=== PATIENT | female | born 1960 | race Caucasian/White ===

== ENCOUNTER 2022-02-03 07:29 | Inpatient (IN) | payer MEDICAID ==
[~2022-02-03] VITALS: Ht 162.6 cm; Wt 47.2 kg
--- NOTE | 2022-02-03 07:29 | NUR ---
BIB [id number] FROM HOME C/O GENERALIZED WEAKNESS, POOR APPETITE, UNALBLE TO WALK AND ABOMINAL PAIN 7/10 ON P/S X2 DAYS. PT IS A&OX4. ATTACHED TO MONITOR, VITALS ARE WITHIN NORMAL LIMITS. AWAITING MD ORDERS.
[2022-02-03] MEDS ORDERED: IV NS 0.9% 1,000 ML BAG IV ONE (08:00)
--- NOTE | 2022-02-03 08:10 | NUR ---
TECH AT BEDSIDE FOR EKG
--- NOTE | 2022-02-03 08:11 | NUR ---
RAC #20 BLOOD DRAWN AND SENT TO LAB
[2022-02-03 08:15] LABS: BASOPHILS % (AUTO) 1.1 % (0.0-2.0); HEMATOCRIT 36 % (33-45); LYMPHOCYTES # (AUTO) 2.1 K/uL (0.8-4.8); LYMPHOCYTES % (AUTO) 47.2 % (20.0-44.0); MEAN CORPUSCULAR HGB CONC 33 g/dl (31.0-36.0); MEAN CORPUSCULAR VOLUME 90 fL (82-100); MONOCYTES # (AUTO) 0.3 K/uL (0.1-1.30); MONOCYTES % (AUTO) 6.3 % (2.0-12.0); NEUTROPHILS % (AUTO) 44.4 % (43.0-81.0); PLATELET COUNT (AUTO) 304 K/uL (150-450); RED BLOOD CELL COUNT(AUTO) 4.02 MIL/uL (4.0-5.2); WHITE BLOOD COUNT (AUTO) 4.5 K/uL (4.3-11.0)
--- NOTE | 2022-02-03 08:20 | NUR ---
MOVE SHEET SUBMITTED.
--- NOTE | 2022-02-03 08:22 | NUR ---
COVID SWAB TEST DONE SENT TO LAB.
[2022-02-03 08:30] LABS: CALCIUM, SERUM 8.8 mg/dL (8.5-10.1); CARBON DIOXIDE 26 mmol/L (21-32); CHLORIDE 99 mmol/L (98-107); CREATININE 0.8 mg/dL (0.6-1.3); GLUCOSE 175 mg/dL (74-106); POTASSIUM 3.7 mmol/L (3.5-5.1); SODIUM SERUM 127 mmol/L (136-145); UREA NITROGEN, BLOOD 11 mg/dL (7-18)
[2022-02-03 08:35] LABS: ALANINE AMINOTRANSFERASE 61 U/L (12-78); ALBUMIN 2.2 g/dL (3.4-5.0); ALKALINE PHOSPHATASE 133 U/L (46-116); ASPARTATE AMINOTRANSFERASE 31 U/L (15-37); BILIRUBIN,DIRECT 0.1 mg/dL (0.0-0.2); BILIRUBIN,TOTAL 0.5 mg/dL (0.2-1.0); TOTAL PROTEIN, SERUM 7.3 g/dL (6.4-8.2)
[2022-02-03 08:47] LABS: THYROID STIMULATING HORMONE 2.294 uIU/mL (0.358-3.74)
[2022-02-03] MEDS ORDERED: NYST5ORA PO (09:46)
[2022-02-03] MEDS ORDERED: POTA10TA11 PO (09:46)
[2022-02-03] MEDS ORDERED: FLUC150T PO (09:46)
[2022-02-03] MEDS ORDERED: SULF1TAB48 PO (09:46)
[2022-02-03] MEDS ORDERED: MIRT-90 PO (09:46)
[2022-02-03] MEDS ORDERED: PANT40TA49 PO (09:46)
[2022-02-03] MEDS ORDERED: MAGN400T26 PO (09:46)
[2022-02-03] MEDS ORDERED: BICT1TAB PO (09:46)
[2022-02-03] MEDS ORDERED: TEMAZEPAM 15 MG CAPSULE PO PRN (11:00)
[2022-02-03] MEDS ORDERED: ACETAMINOPHEN 325 MG TABLET PO PRN (11:00)
[2022-02-03] MEDS ORDERED: MAGNESIUM HYDROXIDE 30 ML UDC PO PRN (11:00)
[2022-02-03] MEDS ORDERED: Z GUARD REMEDY 4 OZ OINT TP PRN (11:00)
[2022-02-03] MEDS ORDERED: ONDANSETRON HCL/PF 4 MG/2 ML VIAL IVP PRN (11:00)
[2022-02-03] MEDS ORDERED: MAG HYDROX/AL HYDROX/SIMETH 30 ML UDC PO PRN (11:00)
--- NOTE | 2022-02-03 11:14 | NUR ---
URINE SAMPLE COLLECTED AND SENT TO LAB
[2022-02-03] MEDS: HYDROCODONE/APAP 5/325MG TABLET PO PRN ×2 (11:26→21:02)
[2022-02-03] MEDS ORDERED: HYDROCODONE/APAP 5/325MG TABLET ONE (11:26)
[2022-02-03] MEDS: IV D5/0.45 NACL 1,000 ML IV PRN ×2 (11:33→16:29)
[2022-02-03 11:57] LABS: BILIRUBIN,URINE NEGATIVE (NEGATIVE); COLOR,URINE YELLOW (YELLOW); LEUKOCYTE ESTERASE ,URINE NEGATIVE (NEGATIVE); NITRITE, URINE NEGATIVE (NEGATIVE); PH,URINE 7.5 (5.0-8.0); PROTEIN,URINE NEGATIVE (NEGATIVE); UGLUCOSE NEGATIVE (NEGATIVE); UROBILINOGEN,URINE 0.2 EU/dL (0.2)
[2022-02-03 12:14] LABS: BACTERIA,URINE Few /HPF (None Seen); RBC,URINE NONE SEEN /HPF (0-2); SQUAMOUS EPITHELIAL CELL,UR Moderate /HPF (None Seen); WBC,URINE NONE SEEN /HPF (0-3)
--- NOTE | 2022-02-03 15:11 | NUR ---
REPORT GIVEN TO RICHARD FOR MARCIA
--- NOTE | 2022-02-03 15:37 | NUR ---
PT TRANSFERRED TO ROOM 307 VIA PAULA MARX PROTOCOL. WARM HANDOFF GIVEN TO ANGELA RAMOS.
[2022-02-03 16:00] VITALS: BP 136/89
--- NOTE | 2022-02-03 19:01 | NUR ---
MS RN CLOSING NOTES: PT IN BED AWAKE, ALERT AND ORIENTED X 4 AND CZECH SPEAKING. NO SOB OR CARDIAC DISTRESS NOTED. DENIES ANY PAIN AT THIS TIME. IV ACCESS RAC G20 PATENT AND INTACT INFUSING D5 1/2 NS @75ML/HR. SAFETY MEASURES MAINTAINED: BED LOCKED AND IN LOWEST POSITION, SIDE RAILS UP X 2. CALL LIGHT IN EASY REACH FOR HELP. ENDORSED TO NOC SHIFT FOR MARCIA.
--- NOTE | 2022-02-03 19:30 | NUR ---
MS RN OPENING NOTE RECEIVED PT AWAKE IN BED. A/O X4 WITH EPISODES OF FORGETFULNESS, SAMI SPEAKING ONLY. PT STABLE ON ROOM AIR, SATURATING 97%. NO SOB OR S/S OF RESPIRATORY DISTRESS. BREATHING EVEN AND UNLABORED. IV ACCESS RAC 20G, INTACT AND PATENT, RUNNING D5 1/2NS @ 75 ML/HR. SAFETY PRECAUTIONS IN PLACE. BED IN LOWEST LOCKED POSITION, HOB ELEVATED, SIDE RAILS UP X2, AND CALL LIGHT AND TABLE WITHIN REACH. ALL NEEDS MET AT THIS TIME.
[2022-02-03 20:00] VITALS: BP 138/92
[2022-02-04 06:03] LABS: BASOPHILS % (AUTO) 0.9 % (0.0-2.0); EOSINOPHILS % (AUTO) 1.1 % (0.0-6.0); HEMATOCRIT 34 % (33-45); HEMOGLOBIN 11.3 g/dL (11.5-14.8); LYMPHOCYTES # (AUTO) 1.6 K/uL (0.8-4.8); LYMPHOCYTES % (AUTO) 34.9 % (20.0-44.0); MEAN CORPUSCULAR HGB CONC 34 g/dl (31.0-36.0); MEAN CORPUSCULAR VOLUME 90 fL (82-100); MONOCYTES # (AUTO) 0.3 K/uL (0.1-1.30); MONOCYTES % (AUTO) 5.9 % (2.0-12.0); NEUTROPHILS # (AUTO) 2.6 K/uL (1.8-8.9); NEUTROPHILS % (AUTO) 57.2 % (43.0-81.0); PLATELET COUNT (AUTO) 248 K/uL (150-450); RED BLOOD CELL COUNT(AUTO) 3.72 MIL/uL (4.0-5.2); WHITE BLOOD COUNT (AUTO) 4.5 K/uL (4.3-11.0)
[2022-02-04 06:22] LABS: CALCIUM, SERUM 8.5 mg/dL (8.5-10.1); CREATININE 0.5 mg/dL (0.6-1.3); PHOSPHORUS 2.9 mg/dL (2.5-4.9); POTASSIUM 3.8 mmol/L (3.5-5.1)
--- NOTE | 2022-02-04 06:49 | NUR ---
MS RN CLOSING NOTE PT AWAKE IN BED. A/O X2 WITH EPISODES OF FORGETFULNESS, BULGARIAN SPEAKING ONLY. PT STABLE ON ROOM AIR, SATURATING 98%. NO SOB OR S/S OF RESPIRATORY DISTRESS. BREATHING EVEN AND UNLABORED. IV ACCESS RFA 22G, INTACT AND PATENT, RUNNING D5 1/2NS @ 75 ML/HR. ALL DUE MEDS GIVEN ORDERED. SAFETY PRECAUTIONS IN PLACE AT ALL TIMES. BED IN LOWEST LOCKED POSITION, HOB ELEVATED, SIDE RAILS UP X2, AND CALL LIGHT AND TABLE WITHIN REACH. ALL NEEDS MET AT THIS TIME AND WILL ENDORSE TO ONCOMING NURSE FOR MARCIA.
--- NOTE | 2022-02-04 07:35 | NUR ---
MS RN OPENING NOTE Patient in bed, awake. A/O x 1-2, confused. Citizen Of [place] speaking only. On room air, breathing evenly and unlabored. No SOB or s/s of in distress noted. Iv access on RFA #22 infusing D5 1/2 NS at 75 ml/hr. Safety precautions in place: bed in low, locked position; siderails up x 2; call light within reach. Will continue to monitor.
[2022-02-04 07:41] LABS: THYROID STIMULATING HORMONE 3.017 uIU/mL (0.358-3.74)
[2022-02-04 08:00] VITALS: BP 169/100
[2022-02-04] MEDS: PANTOPRAZOLE 40 MG TABLET.DR PO SCH (08:17)
[2022-02-04 12:00] VITALS: BP 147/96
[2022-02-04] MEDS: ALPRAZOLAM 0.25 MG TABLET PO PRN (12:15)
[2022-02-04] MEDS: IV D5/0.45 NACL 1,000 ML IV PRN (12:20)
[2022-02-04] MEDS: MAGNESIUM OXIDE 400 MG TABLET PO SCH (14:15)
[2022-02-04 16:00] VITALS: BP 128/87
[2022-02-04] MEDS: HYDROCODONE/APAP 5/325MG TABLET PO PRN (18:06)
[2022-02-04] MEDS: NYSTATIN (PYXIS) 500,000 UNIT/5 ML ORAL.SUSP PO SCH ×2 (18:13→21:12)
[2022-02-04] MEDS: ENSURE ENLIVE 237 ML LIQUID (VANILLA) PO SCH (18:22)
--- NOTE | 2022-02-04 18:58 | NUR ---
MS RN CLOSING NOTE Patient in bed, awake. A/O x 1-2, confused. Uruguayan speaking only. Stable on room air, breathing evenly and unlabored. No SOB or s/s of in distress noted. Iv access on RFA #22 infusing D5 1/2 NS at 75 ml/hr. All prescribed medications are administered. Safety precautions maintained: bed in low, locked position; siderails up x 2; call light within reach. Will endorse to next shift any MARCIA.
--- NOTE | 2022-02-04 19:00 | NUR ---
RN NOTES: -RECEIVED AWAKE ON BED , LYING COMFORTABLY ON SEMI FOWLERS POSITION, A/OX1-2 WITH PERIODS OF CONFUSION AND FORGETFULNESS,TURKS AND [place] SPEAKING ONLY, NEICE PRESENT AT BED SIDE,NO PAIN OR DISCOMFORT AT THIS TIME, NON LABORED BREATHING ON ROOM AIR, , ORIENTED TO UNIT AND STAFF, COOPERATIVE TO CARE,IV CANNULA ON THE RFA G#22 WITH D5%1/2 NS AT 75 ML/HR ONGOING VIA INFUSION PUMP, FOR LABS IN THE MORNING, PT AND PSYCH EVAL DONE TODAY, CONTINUE HYDRATION, SHE VERBALIZED, SHE IS NOT IN PAIN IN TURKS AND [place] , KEPT ON CLOSE WATCH. -SAFETY PRECAUTION OBSERVED, -KEPT CALL LIGHT WITHIN EASY REACH. -BED LOW AND LOCKED, SIDE RAILS UP X 2.
[2022-02-04 20:00] VITALS: BP 111/65
[2022-02-04] MEDS: MIRTAZAPINE 15 MG TABLET PO SCH (21:31)
--- NOTE | 2022-02-04 21:32 | NUR ---
RN NOTES: ORAL MEDS GIVEN, COOPERATIVE.
[2022-02-05] MEDS: IV D5/0.45 NACL 1,000 ML IV PRN ×2 (01:52→18:29)
--- NOTE | 2022-02-05 01:52 | NUR ---
RN NOTES: IVF CONSUMED, CHANGE INTO NEW BAG D5%1/2 NS AT 75 ML/HR.
--- NOTE | 2022-02-05 06:11 | NUR ---
RN NOTES: MORNING CARE DONE, CLEAN AND CHANGE, REPOSITIONED.
[2022-02-05 06:13] LABS: CALCIUM, SERUM 8.3 mg/dL (8.5-10.1); CREATININE 0.5 mg/dL (0.6-1.3); MAGNESIUM 1.9 mg/dL (1.8-2.4); PHOSPHORUS 2.9 mg/dL (2.5-4.9); POTASSIUM 3.3 mmol/L (3.5-5.1)
--- NOTE | 2022-02-05 07:00 | NUR ---
RN NOTES: ABLE TO SLEEP AND REST, NO PAIN OR DISCOMFORT IN THE NIGHT, IVF CONTINUE, BLOOD TEST DONE IN THE MORNING,FOR PT, GIVEN FLUIDS TOLERATED, ENDORSED FOR CONTINUITY OF CARE.
[2022-02-05 07:11] LABS: BASOPHILS # (AUTO) 0.1 K/uL (0.0-0.2); BASOPHILS % (AUTO) 1.6 % (0.0-2.0); EOSINOPHILS % (AUTO) 2.4 % (0.0-6.0); HEMATOCRIT 32 % (33-45); HEMOGLOBIN 10.9 g/dL (11.5-14.8); LYMPHOCYTES # (AUTO) 1.6 K/uL (0.8-4.8); LYMPHOCYTES % (AUTO) 46.8 % (20.0-44.0); MEAN CORPUSCULAR HGB CONC 34 g/dl (31.0-36.0); MEAN CORPUSCULAR VOLUME 91 fL (82-100); MONOCYTES # (AUTO) 0.3 K/uL (0.1-1.30); MONOCYTES % (AUTO) 9.1 % (2.0-12.0); NEUTROPHILS # (AUTO) 1.4 K/uL (1.8-8.9); NEUTROPHILS % (AUTO) 40.1 % (43.0-81.0); PLATELET COUNT (AUTO) 229 K/uL (150-450); RED BLOOD CELL COUNT(AUTO) 3.52 MIL/uL (4.0-5.2); WHITE BLOOD COUNT (AUTO) 3.5 K/uL (4.3-11.0)
[2022-02-05] MEDS ORDERED: PANTOPRAZOLE 40 MG TABLET.DR PO SCH (07:30)
--- NOTE | 2022-02-05 07:35 | NUR ---
MS RN OPENING NOTE Patient in bed, sleeping. Hebrew speaking only. On room air, breathing evenly and unlabored. No SOB or s/s of in distress noted. Iv access on RFA #22 infusing D5 1/2 NS at 75 ml/hr. Safety precautions in place: bed in low, locked position; siderails up x 2; call light within reach. Will continue to monitor. Addendum: 02/05/22 at 0752 by JOSÉ PADRON RN A/O x2 per weight shifter nurse.
[2022-02-05 08:00] VITALS: BP 98/58
[2022-02-05] MEDS: MAGNESIUM OXIDE 400 MG TABLET PO SCH (09:01)
[2022-02-05] MEDS: PANTOPRAZOLE 40 MG TABLET.DR PO SCH (09:02)
[2022-02-05] MEDS: SULFAMETH/TRIMETH 800/160 MG 1 UDTAB TABLET PO SCH (09:02)
[2022-02-05] MEDS: POTASSIUM CHLORIDE 10 MEQ TABLET.SA PO SCH (09:02)
[2022-02-05] MEDS: FLUCONAZOLE (100 MG) 100 MG TABLET PO SCH (09:03)
[2022-02-05] MEDS: NYSTATIN (PYXIS) 500,000 UNIT/5 ML ORAL.SUSP PO SCH ×4 (09:04→21:22)
[2022-02-05] MEDS: ENSURE ENLIVE 237 ML LIQUID (VANILLA) PO SCH ×2 (09:06→17:41)
[2022-02-05] MEDS: HYDROCODONE/APAP 5/325MG TABLET PO PRN ×2 (11:39→21:22)
[2022-02-05] MEDS ORDERED: POTASSIUM CHLORIDE 20 MEQ TAB.PRT.SR PO SCH (12:00)
[2022-02-05 16:00] VITALS: BP 139/91
--- NOTE | 2022-02-05 18:56 | NUR ---
MS RN CLOSING NOTE Patient in bed, resting. Malawian speaking only.Stable on room air, breathing evenly and unlabored. No SOB or s/s of in distress noted. IV access on RFA #22 infusing D5 1/2 NS at 75 ml/hr. All needs attended to. Due meds given. Safety precautions in place: bed in low, locked position; siderails up x 2; call light within reach. Will endorse to sandal parts assembler nurse for MARCIA.
--- NOTE | 2022-02-05 19:25 | NUR ---
RN OPENING NOTE PATIENT IN BED, AWAKE. PATIENT IS A/O X 2, ABLE TO MAKE NEEDS KNOWN. PATIENT IS ON RA, TOLERATING WELL. NO SOB NOTED, BREATHING EVEN AND UNLABORED. PATIENT HAS A RFA 22G WITH D5 1/2 NS ONGOING AT 75 ML/HR, INFUSING WELL. PATIENT DOES NOT REPORT ANY PAIN AT THIS TIME. SAFETY MEASURES IN PLACE: BED LOCKED AND IN LOWEST POSITION, CALL LIGHT WITHIN REACH, SIDE RAILS UP. WILL MONITOR PATIENT CLOSELY
[2022-02-05] MEDS: MIRTAZAPINE 15 MG TABLET PO SCH (21:22)
--- NOTE | 2022-02-05 21:22 | NUR ---
RN NOTE PATIENT GIVEN NORCO FOR PAIN ON HER BACK. WILL REASSESS MED EFFECTIVENESS AT A LATER TIME
[2022-02-06 06:16] LABS: HEMATOCRIT 31 % (33-45); HEMOGLOBIN 10.5 g/dL (11.5-14.8); MEAN CORPUSCULAR HGB CONC 34 g/dl (31.0-36.0); MEAN CORPUSCULAR VOLUME 90 fL (82-100); RED BLOOD CELL COUNT(AUTO) 3.44 MIL/uL (4.0-5.2); WHITE BLOOD COUNT (AUTO) 4.4 K/uL (4.3-11.0)
[2022-02-06 06:17] LABS: BASOPHILS # (AUTO) 0.1 K/uL (0.0-0.2); LYMPHOCYTES # (AUTO) 1.7 K/uL (0.8-4.8); LYMPHOCYTES % (AUTO) 39.7 % (20.0-44.0); MONOCYTES # (AUTO) 0.3 K/uL (0.1-1.30); MONOCYTES % (AUTO) 7.6 % (2.0-12.0); NEUTROPHILS # (AUTO) 2.1 K/uL (1.8-8.9); NEUTROPHILS % (AUTO) 48.7 % (43.0-81.0); PLATELET COUNT (AUTO) 227 K/uL (150-450)
[2022-02-06] MEDS: IV D5/0.45 NACL 1,000 ML IV PRN ×2 (06:22→18:29)
[2022-02-06] MEDS: ALPRAZOLAM 0.25 MG TABLET PO PRN (06:24)
[2022-02-06 06:54] LABS: CALCIUM, SERUM 8.4 mg/dL (8.5-10.1); CREATININE 0.5 mg/dL (0.6-1.3); MAGNESIUM 1.8 mg/dL (1.8-2.4); PHOSPHORUS 2.6 mg/dL (2.5-4.9); POTASSIUM 3.7 mmol/L (3.5-5.1)
--- NOTE | 2022-02-06 07:11 | NUR ---
RN CLOSING NOTE PATIENT GIVEN XANAX FOR ANXIOUSNESS. PAIN MANAGED WITH NORCO TABLET. ALL NEEDS MET AND ATTENDED. ALL ORDERS CARRIED OUT. WILL ENDORSE PATIENT TO DAY SHIFT NURSE NURSE.
--- NOTE | 2022-02-06 07:15 | NUR ---
RN OPENING NOTE PATIENT IN BED, AWAKE. PATIENT IS A/O X 2, ABLE TO MAKE NEEDS KNOWN. PATIENT IS ON RA, TOLERATING WELL. NO SOB NOTED, BREATHING EVEN AND UNLABORED. PATIENT HAS A RFA 22G WITH D5 1/2 NS ONGOING AT 75 ML/HR, INFUSING WELL. VITALS TAKEN AND RECORDED. NO COMPLAINED AT THIS TIME. PATIENT DOES NOT REPORT ANY PAIN AT THIS TIME. SAFETY MEASURES IN PLACE: BED LOCKED AND IN LOWEST POSITION, CALL LIGHT WITHIN REACH, SIDE RAILS UP. WILL MONITOR PATIENT CLOSELY
[2022-02-06 08:00] VITALS: BP 140/80
[2022-02-06] MEDS: NYSTATIN (PYXIS) 500,000 UNIT/5 ML ORAL.SUSP PO SCH ×4 (08:46→20:27)
[2022-02-06] MEDS: SULFAMETH/TRIMETH 800/160 MG 1 UDTAB TABLET PO SCH (08:47)
[2022-02-06] MEDS: MAGNESIUM OXIDE 400 MG TABLET PO SCH (08:47)
[2022-02-06] MEDS: PANTOPRAZOLE 40 MG TABLET.DR PO SCH (08:47)
[2022-02-06] MEDS: POTASSIUM CHLORIDE 10 MEQ TABLET.SA PO SCH (08:48)
[2022-02-06] MEDS: FLUCONAZOLE (100 MG) 100 MG TABLET PO SCH (08:48)
[2022-02-06] MEDS: ENSURE ENLIVE 237 ML LIQUID (VANILLA) PO SCH ×2 (08:50→17:42)
[2022-02-06] MEDS: HYDROCODONE/APAP 5/325MG TABLET PO PRN (15:40)
[2022-02-06 16:00] VITALS: BP 142/69
--- NOTE | 2022-02-06 18:42 | NUR ---
RN CLOSING NOTE PATIENT IN BED, SLEEPING MOST OF THE TIME. PATIENT IS A/O X 2, ABLE TO MAKE NEEDS KNOWN. PATIENT IS ON RA, TOLERATING WELL. NO SOB NOTED, BREATHING EVEN AND UNLABORED ALL THROUGHOUT THE SHIFT. C/O PAIN, PRN PAIN MEDS GIVEN WITH GOOD EFFECT.SAFETY MEASURES IN PLACE: BED LOCKED AND IN LOWEST POSITION, CALL LIGHT WITHIN REACH, SIDE RAILS UP. ENDORSED.
--- NOTE | 2022-02-06 19:00 | NUR ---
OPENING NOTES: ALERT TO PLACE AND NAME SPEAKS ONLY KHMER SR UP AND THE BED ALARM IS ON EXPLAINED THE CALL LIGHT SYSTEM TO HER AND HOW TO CALL FOR ASSIST ROOM AIR NO SO8 COOPERATIVE AND PLEASENT
[2022-02-06 20:00] VITALS: BP 128/92
[2022-02-06] MEDS: MIRTAZAPINE 15 MG TABLET PO SCH (22:01)
[2022-02-07] MEDS: HYDROCODONE/APAP 5/325MG TABLET PO PRN ×2 (01:45→20:19)
--- NOTE | 2022-02-07 05:22 | NUR ---
CLOSING NOTES: ALERT /ORIENTATED X2 ATTENTION SEEKING WILL CALL NURSE TO THE BEDSIDE FREQ. USING THE CALL LIGHT INCONTINENT MAX ASSIST WHEN BEING TURNED AND REPOSITIONED AFGHAN SPEAKING EASILY AGITATED
[2022-02-07] MEDS: IV D5/0.45 NACL 1,000 ML IV PRN (06:23)
[2022-02-07 07:00] LABS: BASOPHILS % (AUTO) 1.1 % (0.0-2.0); EOSINOPHILS % (AUTO) 1.5 % (0.0-6.0); HEMATOCRIT 31 % (33-45); HEMOGLOBIN 10.6 g/dL (11.5-14.8); LYMPHOCYTES # (AUTO) 1.9 K/uL (0.8-4.8); LYMPHOCYTES % (AUTO) 42.3 % (20.0-44.0); MEAN CORPUSCULAR HGB CONC 34 g/dl (31.0-36.0); MEAN CORPUSCULAR VOLUME 89 fL (82-100); MONOCYTES # (AUTO) 0.3 K/uL (0.1-1.30); MONOCYTES % (AUTO) 7.5 % (2.0-12.0); NEUTROPHILS # (AUTO) 2.2 K/uL (1.8-8.9); NEUTROPHILS % (AUTO) 47.6 % (43.0-81.0); PLATELET COUNT (AUTO) 227 K/uL (150-450); RED BLOOD CELL COUNT(AUTO) 3.47 MIL/uL (4.0-5.2); WHITE BLOOD COUNT (AUTO) 4.5 K/uL (4.3-11.0)
--- NOTE | 2022-02-07 07:23 | NUR ---
RN OPENING NOTE PATIENT IN BED, AWAKE. A/O X 2, VERBALLY RESPONSIVE AND ABLE TO MAKE NEEDS KNOWN. PATIENT IS ON ROOM AIR, TOLERATING WELL. NO SOB NOTED, BREATHING EVEN AND UNLABORED. NOTED WITH IV ACCESS ON RFA 22G WITH D5 1/2 NS ONGOING AT 75 ML/HR, INFUSING WELL. DENIES ANY PAIN AT THIS TIME. SAFETY MEASURES IN PLACE. BED LOCKED AND IN LOWEST POSITION, CALL LIGHT WITHIN REACH, SIDE RAILS UP X2. WILL CONTINUE TO MONITOR PATIENT.
[2022-02-07 08:00] VITALS: BP 157/90
[2022-02-07 08:03] LABS: CALCIUM, SERUM 8.5 mg/dL (8.5-10.1); CREATININE 0.4 mg/dL (0.6-1.3); MAGNESIUM 1.8 mg/dL (1.8-2.4); PHOSPHORUS 2.8 mg/dL (2.5-4.9); POTASSIUM 3.9 mmol/L (3.5-5.1)
[2022-02-07] MEDS: MAGNESIUM OXIDE 400 MG TABLET PO SCH (08:39)
[2022-02-07] MEDS: ENSURE ENLIVE 237 ML LIQUID (VANILLA) PO SCH ×2 (08:39→17:07)
[2022-02-07] MEDS: POTASSIUM CHLORIDE 10 MEQ TABLET.SA PO SCH (08:39)
[2022-02-07] MEDS: FLUCONAZOLE (100 MG) 100 MG TABLET PO SCH (08:39)
[2022-02-07] MEDS: NYSTATIN (PYXIS) 500,000 UNIT/5 ML ORAL.SUSP PO SCH ×3 (08:39→17:07)
[2022-02-07] MEDS: PANTOPRAZOLE 40 MG TABLET.DR PO SCH (08:39)
[2022-02-07] MEDS: SULFAMETH/TRIMETH 800/160 MG 1 UDTAB TABLET PO SCH (08:39)
[2022-02-07 10:27] LABS: BAND % (MANUAL) 2 % (0.0-5.0); EOSINOPHILS % (MANUAL) 2 % (0-4); LYMPHOCYTES % (MANUAL) 38 % (16-48); MONOCYTES % (MANUAL) 12 % (0-11.0); NEUTROPHILS % (MANUAL) 46 (42-76)
[2022-02-07 17:33] VITALS: BP 145/92
--- NOTE | 2022-02-07 18:59 | NUR ---
RN NOTE PATIENT IN BED, AWAKE, A/O X2-3, VERBALLY RESPONSIVE. STABLE ON ROOM AIR. ALL DUE MEDS GIVEN, TAKEN WELL. PATIENT FOR DISCHARGE TO [facility], REPORT GIVEN TO ANGELA VIRGEN. PATIENT'S NIECE THO AWARE OF DISCHARGE TO SNF. AWAITING FOR PATIENT'S PROCESS DESIGNER. WILL ENDORSE TO NEXT SHIFT.
--- NOTE | 2022-02-07 19:30 | NUR ---
MS RN OPENING NOTE RECEIVED PATIENT IN BED; AWAKE, ALERT AND ORIENTED X 2, VERBALLY RESPONSIVE. BREATHING EVEN AND NONLABORED. ON ROOM AIR, TOLERATING WELL. NOT IN ANY FORM OF RESPIRATORY DISTRESS. WITH IV ACCESS ON RFA 20g; PATENT AND INTACT INFUSING WITH D5 1/2 NS REGULATED @ 75 ML/HR; FLUSHES WELL. NO C/O ANY PAIN OR DISCOMFORT AT THIS TIME. FOR DISCHARGE TO [facility]; AWAITING TRANSPORT. SAFETY MEASURES IMPLEMENTED: CALL LIGHT AND TABLE WITHIN REACH, SIDE RAILS UP X 2, BED IN LOWEST LOCKED POSITION. WILL CONTINUE TO MONITOR.
--- NOTE | 2022-02-07 20:20 | NUR ---
PATIENT C/O BACK PAIN 8/10 PAIN SCALE. PRN NORCO 5/325 MG 1 TAB GIVEN PO ORDERED. WILL CONTINUE TO MONITOR AND REASSESS PT.
--- NOTE | 2022-02-07 20:55 | NUR ---
MS SUPERVISOR SPECIAL EFFECTS NOTE PATIENT DISCHARGED TO [facility] IN STABLE CONDITION. PATIENT REMAINS AWAKE AND VERBALLY RESPONSIVE. NO SIGNS OF ACUTE DISTRESS NOTED. VITAL SIGNS TAKEN, STABLE AND RECORDED. ALL BELONGINGS ACCOUNTED FOR. IV ACCESS ON RIGHT FOREARM REMOVED, NO BLEEDING NOTED, PRESSURE DRESSING APPLIED TO SITE. EXIT CARE FOLDER HANDED TO [facility]. HANDOFF REPORT GIVEN. DISCHARGE INSTRUCTIONS PROVIDED. PATIENT PICKED UP BY [facility] VIA GURNEY. MD AND CN AWARE OF DISCHARGE.
== END 2022-02-07 21:00 | DRG 421 ==
LOC: ER 07:34 → TELE 15:09 → MED 15:40 → UNDODISIN 02-05 13:30
PROVIDERS: ADMIT Nurse Practitioner Acute Care; ATTEND Student in an Organized Health Care Education/Training Program
DX: R62.7 Adult failure to thrive (principal); G93.41 Metabolic encephalopathy; E43 Unspecified severe protein-calorie malnutrition; R64 Cachexia; D68.59 Other primary thrombophilia; F29 Unspecified psychosis not due to a substance or known physiological condition; E88.09 Other disorders of plasma-protein metabolism, not elsewhere classified; F32.9 Major depressive disorder, single episode, unspecified; Z20.822 Contact with and (suspected) exposure to COVID-19; Z79.899 Other long term (current) drug therapy; K21.9 Gastro-esophageal reflux disease without esophagitis; Z74.09 Other reduced mobility; R63.0 Anorexia; Z68.1 Body mass index [BMI] 19.9 or less, adult; F39 Unspecified mood [affective] disorder; E87.1 Hypo-osmolality and hyponatremia; E87.6 Hypokalemia; N39.0 Urinary tract infection, site not specified
CPT/HCPCS: 36415; 71045-TC; 80048-TC; 80076-TC; 81001; 82962-TC; 83735-TC; 83880; 84100-TC; 84443-TC; 84484-TC; 85025-TC; 87081-TC; 97112-TC; 97116-TC; 97530-TC; C9803; G0378; J3490; J7030; J7042